=== PATIENT | female | born 1980 | race Caucasian/White ===

== ENCOUNTER 2016-08-13 06:28 | Day surgery (SDC) | payer SELFPAY ==
[2016-08-08 13:05] VITALS: BMI 31.9
[2016-08-13] MEDS ORDERED: LIDOCAINE HCL 1%, 10 MG/ML (20ML VIAL) ONE (07:12)
[2016-08-13] MEDS ORDERED: LIDOCAINE 1%-EPI 1:100,000 30 ML MDV IJ ONE ×2 (07:12→08:38)
[2016-08-13] MEDS ORDERED: EPINEPHrine 1:1,000 1 MG/1 ML - 30ML VIAL (INJECTION) ONE (07:12)
[2016-08-13] MEDS ORDERED: MIDAZOLAM HCL 2 MG/2 ML SINGLE DOSE VIAL ONE (07:57)
[2016-08-13] MEDS ORDERED: ROCURONIUM BROMIDE 50 MG/5 ML VIAL ONE ×2 (08:03→08:47)
[2016-08-13] MEDS ORDERED: PROPOFOL 20 ML ONE ×3 (08:03→09:55)
[2016-08-13] MEDS ORDERED: SUCCINYLCHOLINE CHLORIDE 200 MG/10 ML VIAL ONE (08:03)
[2016-08-13] MEDS ORDERED: LIDOCAINE HCL/PF 2% SDV 5ML VIAL ONE (08:28)
[2016-08-13] MEDS ORDERED: DEXAMETHASONE SOD PHOSPHATE 4 MG/1 ML VIAL ONE (08:28)
[2016-08-13] MEDS ORDERED: HYDROmorphone HCL/PF 1 MG/ML VIAL (FOR PYXIS CHARGING ONLY) ONE ×2 (08:48→11:11)
[2016-08-13] MEDS ORDERED: ceFAZolin SODIUM 1 GM VIAL ONE (08:49)
[2016-08-13] MEDS ORDERED: GENTAMICIN SO4 80 MG/2 ML VIAL ONE (08:49)
[2016-08-13] MEDS ORDERED: LIDOCAINE 1%/EPI 1:100000 (50 ML MULTI DOSE VIAL) INF ONE ×2 (09:11)
[2016-08-13] MEDS ORDERED: ONDANSETRON 4 MG/2 ML VIAL ONE ×2 (09:15→12:17)
[2016-08-13] MEDS ORDERED: PHENYLEPHRINE HCL 10 MG/1 ML SINGLE DOSE VIAL ONE (09:15)
[2016-08-13] MEDS ORDERED: DESFLURANE GAS 240 ML BOTTLE IH ONE (09:59)
[2016-08-13] MEDS ORDERED: NEOSTIGMINE METHYLSULFATE 0.5 MG/ML - 10 ML MDV ONE (10:23)
[2016-08-13] MEDS ORDERED: GLYCOPYRROLATE 0.2 MG/1 ML VIAL ONE (10:46)
[2016-08-13] MEDS ORDERED: ONDANSETRON 4 MG/2 ML VIAL IVPUSH PRN (11:36)
[2016-08-13] MEDS ORDERED: oxyCODONE HCL 5 MG TABLET PO PRN ×2 (11:36→11:51)
[2016-08-13] MEDS: HYDROmorphone HCL CARPU-JECT 1 MG/1 ML DISP.SYRIN IVPUSH PRN ×4 (11:40→12:17)
[2016-08-13] MEDS ORDERED: LACTATED RINGERS SOLUTION 1,000 ML IV SCH (11:45)
[2016-08-13] MEDS ORDERED: HYDROmorphone HCL CARPU-JECT 1 MG/1 ML DISP.SYRIN ONE (12:03)
[2016-08-13 13:04] VITALS: TEMP 97.9
[2016-08-13] MEDS ORDERED: oxyCODONE HCL 5 MG TABLET ONE (13:05)
[2016-08-13 14:06] VITALS: BP 112/79; PULSE 68
--- NOTE | 2016-08-18 15:31 | PATH ---
Surgical Pathology Report Patient Name: BAILEE MCCOY [facility]. Rec. #: [id number] /Age/Gender: 1980 (Age: 36) / F Account: [id number] Location: [facility] AMBULATORY Taken: 08/13/2016 Received: 08/13/2016 Reported: 08/18/2016 Physicians: Jose Martin Majano Specimen(s) Received A: RIGHT BREAST SKIN & TISSUE B: LEFT BREAST SKIN & TISSUE Clinical History Cosmetic Final Diagnosis A. BREAST TISSUE AND SKIN, RIGHT, MASTOPEXY: BENIGN BREAST TISSUE. SKIN WITH THE PATHOLOGIC FINDINGS. B. BREAST TISSUE AND SKIN, LEFT, MASTOPEXY: BENIGN BREAST TISSUE. SKIN WITH NO PATHOLOGIC FINDINGS. Electronically Signed Mai Olmos M.D. Gross Description A. Received in formalin labeled "right breast skin and tissue," is a 207 g, 14.5 x 12.0 x 3.3 cm aggregate of multiple irregular, unoriented portions of fibroadipose tissue and mckeon, unremarkable skin. Sectioning reveals multiple foci of white fibrous tissue Records Management Clerk sections are submitted in 3 cassettes. B. Received in formalin labeled "left breast skin and tissue," is a 320 g, 17.0 x 13.5 x 5.3 cm aggregate of multiple irregular, unoriented portions of fibroadipose tissue and mckeon, unremarkable skin. Sectioning reveals multiple foci of white fibrous tissue. Records Management Clerk sections are submitted in 3 cassettes. /08/14/2016 saudi08/14/2016
== END 2016-08-13 14:00 | disposition home or self-care (01) ==
LOC: FASU 06:28
PROVIDERS: ATTEND Plastic Surgery
PROC: 0J0D3ZZ Alteration of Right Upper Arm Subcutaneous Tissue and Fascia, Percutaneous Approach (ICD-10-PCS; 2016-08-13)
PROC: 0H0V0JZ Alteration of Bilateral Breast with Synthetic Substitute, Open Approach (ICD-10-PCS; principal; 2016-08-13 08:37)
PROC: 0J0F3ZZ Alteration of Left Upper Arm Subcutaneous Tissue and Fascia, Percutaneous Approach (ICD-10-PCS; 2016-08-13 08:37)
DX: Z41.1 Encounter for cosmetic surgery (principal)
CPT/HCPCS: 84703; 88304-TC; 94760

== ENCOUNTER 2017-07-23 06:33 | Day surgery (SDC) | payer SELFPAY ==
[2017-07-14 12:30] VITALS: BMI 32.5
[2017-07-23] MEDS ORDERED: BUPIVACAINE HCL/PF 0.5% (5MG/ML) 10 ML VIAL ONE (07:21)
[2017-07-23] MEDS ORDERED: LIDOCAINE 1%/EPI 1:100000 (20 ML MULTI DOSE VIAL) ONE (07:21)
[2017-07-23] MEDS ORDERED: ceFAZolin SODIUM 1 GM VIAL ONE ×2 (07:21→07:36)
[2017-07-23] MEDS ORDERED: GENTAMICIN SO4 80 MG/2 ML VIAL ONE (07:21)
[2017-07-23] MEDS ORDERED: fentaNYL CITRATE 250 MCG/5 ML VIAL ONE (07:35)
[2017-07-23] MEDS ORDERED: MIDAZOLAM HCL 2 MG/2 ML SINGLE DOSE VIAL ONE (07:35)
[2017-07-23] MEDS ORDERED: PROPOFOL 20 ML ONE ×4 (07:35)
[2017-07-23] MEDS ORDERED: ROCURONIUM BROMIDE 50 MG/5 ML VIAL ONE (07:35)
[2017-07-23] MEDS ORDERED: SUCCINYLCHOLINE CHLORIDE 200 MG/10 ML VIAL ONE (07:35)
[2017-07-23] MEDS ORDERED: KETOROLAC TROMETHAMINE 30 MG/1 ML VIAL ONE (07:36)
[2017-07-23] MEDS ORDERED: LIDOCAINE HCL 2% JELLY (5 ML/TUBE) ONE (07:36)
[2017-07-23] MEDS ORDERED: LIDOCAINE HCL/PF 2% SDV 5ML VIAL ONE (07:36)
[2017-07-23] MEDS ORDERED: DEXAMETHASONE SOD PHOSPHATE 4 MG/1 ML VIAL ONE (07:36)
[2017-07-23] MEDS ORDERED: ONDANSETRON 4 MG/2 ML VIAL ONE (07:36)
[2017-07-23] MEDS ORDERED: HALOPERIDOL LACTATE 5 MG/ML ONE (07:40)
[2017-07-23] MEDS ORDERED: PROMETHAZINE HCL 25 MG/1 ML VIAL IVPUSH PRN (09:26)
[2017-07-23] MEDS ORDERED: oxyCODONE HCL 5 MG TABLET PO PRN (09:26)
[2017-07-23] MEDS ORDERED: ONDANSETRON 4 MG/2 ML VIAL IVPUSH PRN (09:26)
[2017-07-23] MEDS ORDERED: LACTATED RINGERS SOLUTION 1,000 ML IV SCH (09:30)
[2017-07-23] MEDS ORDERED: oxyCODONE HCL 5 MG TABLET ONE ×2 (11:08→12:09)
[2017-07-23] MEDS: oxyCODONE HCL 5 MG TABLET PO PRN ×2 (11:10→12:20)
[2017-07-23 12:22] VITALS: PULSE 77; TEMP 98
[2017-07-23 12:56] VITALS: BP 112/65
--- NOTE | 2017-07-26 17:13 | OP ---
DATE OF OPERATION: 07/23/2017 PREOPERATIVE DIAGNOSIS: Bilateral breast ptosis with bottoming out of breast implants after massive weight loss. POSTOPERATIVE DIAGNOSIS: Bilateral breast ptosis with bottoming out of breast implants after massive weight loss. OPERATIVE PROCEDURE: Reinforcement of lower pole of breasts with revisional surgery, bilateral breasts, and insertion of GalaFlex mesh. OPERATIVE INDICATION: The patient is a young woman, 37 years old, who underwent previous breast surgery with lift of the nipple-areolar complex and mastopexy. She now presents with bottoming out of the implant into the lower descent of the area below the inframammary fold because of massive weight loss, loss of skin turgor, and descent of the implant. The risks and benefits of surgical versus nonsurgical alternatives as well as material complications of the procedure for revision and insertion of mesh were described to the patient on multiple occasions preoperatively. She agreed to the planned procedure. OPERATIVE PROCEDURE IN DETAIL: The patient was taken to the operating room, and after induction of general anesthesia in supine position, both arms were extended and padded and Venodyne boots were placed. Usual timeout and prepping and draping were carried out. The entire breasts were prepped with ChloraPrep solution over their entire extent. Attention was turned to the area which was marked preoperatively, in the standing position, of the area between the lower inframammary incision and the new higher inframammary fold. At this point, after injection of 1% local lidocaine anesthesia with 1:100,000 epinephrine, an incision was made in this long inframammary scar in the right breast down through the skin and subcutaneous tissue and excising en bloc of tissue from the straight line inframammary fold up to the peak incision on the T-shaped Vogel pattern reduction previously had in this area. The skin and subcutaneous tissue was excised en bloc and removed and then dissection was carried down through the subcutaneous tissue to the underlying capsule. The capsule was then opened and an implant was removed in a sterile technique. This was placed into a triple antibiotic solution on the back table, and then a repair was carried out of the lower pole of the breast by imbricating the capsule, removing portions of the capsule to tighten the pocket, and then a GalaForm 3D mesh implant of 7.5 cm x 21 cm was placed into the right breast pocket, sutured to the pectoralis major muscle within the capsule, along the pectoralis border down to the lateral mammary fold, creating a new smaller space for the implant, and then heightening the lower medial portion of the pocket. Using the Wise funnel, the implant was then reinserted back into the pocket and using barbed suture in a running fashion. This 2-0 barbed sutured was completed on both sides, closing the GalaFlex over the lower pole of the implant in the reconstructive method. Good shape and contour was seen, elevating the implant into its new position. The wound was then advanced and closed using interrupted 2-0 Vicryl sutures in the deep tissue, 3-0 V-Loc suture on deep skin, and a running subcuticular suture using V-Loc 4-0 on the skin in subcuticular fashion. The exact same procedure was carried out symmetrically in the opposite breast using a 2nd sheet of GalaForm 3D mesh, and good symmetry was seen in the sitting position after all wounds were closed. Good shape and contour was seen. Dermabond, Steri-Strips, dressings were placed. The patient was awakened, extubated, and transferred to recovery room in satisfactory condition. SALUD WITT M.D. [id number]
== END 2017-07-23 12:55 | disposition home or self-care (01) ==
LOC: FASU 06:33
PROVIDERS: ATTEND Plastic Surgery
PROC: 0HWT0JZ Revision of Synthetic Substitute in Right Breast, Open Approach (ICD-10-PCS; 2017-07-23)
PROC: 0HWU0JZ Revision of Synthetic Substitute in Left Breast, Open Approach (ICD-10-PCS; principal; 2017-07-23 08:10)
DX: N64.81 Ptosis of breast (principal); T85.42XA Displacement of breast prosthesis and implant, initial encounter; Y83.8 Other surgical procedures as the cause of abnormal reaction of the patient, or of later complication, without mention of misadventure at the time of the procedure; Y92.9 Unspecified place or not applicable
CPT/HCPCS: 84703; 94760